=== PATIENT | female | born 1940 | race Caucasian/White ===

== ENCOUNTER 2022-09-26 03:14 | Inpatient (IN) ==
[2022-09-26] MEDS ORDERED: NALOXONE HCL 0.4 MG/ML VIAL IV ONE ×2 (03:15→03:30)
[2022-09-26] MEDS ORDERED: IOPAMIDOL 100 ML BOTTLE IV ONE (03:15)
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
[2022-09-26 03:56] LABS: POC Calcium, Ionized 1.12 (1.16-1.32); POC Potassium 3.8 (3.3-5.1)
[2022-09-26] MEDS ORDERED: 0.9 % SODIUM CHLORIDE 1,000 ML IV ONE (03:58)
[2022-09-26 04:52] LABS: Alcohol,Blood 0.072 gm/dL (<0.010)
[2022-09-26 04:53] LABS: Basophils # (Auto) 0.03 K/mcL (0.00-0.30); Basophils % (Auto) 0.4 % (0.0-2.0); Eosinophils # (Auto) 0.11 K/mcL (0.00-0.70); Eosinophils % (Auto) 1.5 % (0.0-7.0); Hematocrit 37.6 % (34.1-44.9); Lymphocytes # (Auto) 2.47 K/mcL (1.50-4.80); Lymphocytes % (Auto) 34.5 % (15.5-49.0); Mean Cell Volume 92.6 fL (80.0-100.0); Mean Corpuscular HGB Conc 31.9 g/dL (31.0-36.0); Mean Platelet Volume 8.7 fL (8.8-12.5); Monocytes # (Auto) 0.55 K/mcL (0.10-0.90); Monocytes % (Auto) 7.7 % (1.0-12.0); Neutrophils % (Auto) 55.5 % (38.0-78.0); Platelet Count 318 K/mcL (140-440); RBC 4.06 M/mcL (3.59-5.38); Red Cell Distribution Width 14.4 % (11.5-14.5); WBC 7.2 K/mcL (4.5-11.0)
[2022-09-26 04:56] LABS: proBNP 57.5 pg/mL (<450.0)
[2022-09-26 05:08] LABS: Appearance,Urine CLEAR (Clear); Bilirubin,Urine Negative (Negative); Color,Urine YELLOW; Culture Indicated,Urine No; Glucose,Urine (UA) Negative (Negative); Ketones,Urine Negative (Negative); Leukocyte Esterase,Urine Negative /uL (Negative); Mucus,Urine FEW /hpf; Nitrate,Urine Negative (Negative); Protein,Urine Negative (Negative); Specific Gravity,Urine 1.012 (1.000-1.035); Urine Blood Negative (Negative); Urine Hyaline Cast 11 /lph (0-2); Urine RBC < 1 /hpf (0-3); Urine Squamous Epithelial Cell 1 /hpf (0-4); Urine Transitional Epi Cells < 1 /hpf (0-2); Urine WBC 1 /hpf (0-4); Urobilinogen,Urine Negative
[2022-09-26 05:24] LABS: Amphetamine Screen,Urine None detected; Barbiturate Screen,Urine None detected; Benzodiazepines Screen,Urine None detected; Cannabinoid Screen,Urine Suspect Positive; Cocaine Screen,Urine None detected; Opiate Screen,Urine Suspect Positive; Oxycodone, Urine Screen None detected; Phencyclidine Screen,Urine None detected
--- NOTE | 2022-09-26 09:10 | XRay Report ---
CLINICAL INFORMATION: Dyspnea COMPARISON: 10/21/2020 TECHNIQUE: Portable FINDINGS: The heart size, mediastinum and pulmonary vessels are unremarkable. The lungs are clear. Moderate elevation right diaphragm seen as before. There are no effusions. The bones and soft tissues are within normal limits. [employer]OCIATE shunt catheter overlies the right neck chest and right upper quadrant no disruption IMPRESSION: Moderate stable elevation right diaphragm. No acute disease Interpreted and Authenticated by: Horace Barreto 09/26/22
--- NOTE | 2022-09-26 10:43 | Cat Scan Report ---
CLINICAL INFORMATION: Shortness of breath, cough and elevated d-dimer COMPARISON: Chest CT 12/26/2018. TECHNIQUE: 80ml of Isovue-370 were injected intravenously. Using SmartPrep to maximize pulmonary artery opacification, .625mm helical slices were obtained from the lung apices through the lung bases. Following reconstruction, 2.5 mm sagittal, coronal, and axial reformations were processed. The exam was reviewed at mediastinal, lung, and bone windows. The exam was performed using radiation dose optimization techniques including, but not limited to, automated exposure control, adjustment of the mA and/or kV according to patient size and use of iterative reconstruction technique. FINDINGS: Pulmonary parenchymal windows moderate patchy groundglass infiltrates in the shruti bronchovascular central right upper, lower and right middle lobes. A large eventration of the central tendon right diaphragm resulting in chronic compressive subsegmental atelectasis of the inferior right middle and lower lobes. There is also subsegmental atelectasis of the medial posterior basilar segments of the left lower lobe. There is minor scarring in the lingula. Pleural spaces are unremarkable-no effusions. Mediastinal windows show the heart is grossly normal in size and configuration. Moderate fibrofatty calcific plaque scattered throughout the coronary arteries. The pulmonary arteries are normal diameter and well-opacified without evidence of embolus. Thoracic aorta is also normal diameter and well-opacified. There is no adenopathy in the mediastinal, hilar or axillary regions. Esophagus shows moderate diffuse wall thickening with small hiatal hernia. This has progressed. The thyroid is unremarkable. Bones and soft tissues the chest wall are normal.-Shunt catheter is seen as heterogeneous fat over the right lower neck chest and right upper quadrant. 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 No evidence of pulmonary embolus. 2. Moderate patchy groundglass infiltrates and peribronchovascular right upper, middle and lower lobes. Consider aspiration or infection. 3. 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 4. Moderate wall thickening of the thoracic esophagus. This is most commonly due to to peptic disease and may predispose to aspiration. 5. 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 Patient is at risk for median arcuate ligament syndrome. Please correlate with chronic or intermittent postprandial pain and nausea Interpreted and Authenticated by: Horace Barreto 09/26/22
[2022-09-26] MEDS ORDERED: ACETAMINOPHEN 325 MG TABLET PO PRN (10:46)
[2022-09-26] MEDS ORDERED: IPRATROPIUM/ALBUTEROL 3 ML AMPUL.NEB NEB PRN (10:46)
[2022-09-26] MEDS ORDERED: MAGNESIUM SULFATE 2 GM/50 ML BAG IV PRN (10:46)
[2022-09-26] MEDS ORDERED: SENNOSIDES 1 TABLET PO PRN (10:46)
[2022-09-26] MEDS ORDERED: POLYETHYLENE GLYCOL 3350 17 GM PACKET PO PRN (10:46)
[2022-09-26] MEDS ORDERED: POTASSIUM CHLORIDE 20 MEQ TABLET PO PRN ×2 (10:46)
[2022-09-26] MEDS ORDERED: POTASSIUM CHLORIDE 40 MEQ in DEXTROSE 5% IN WATER 500 ML IV PRN (10:46)
[2022-09-26] MEDS ORDERED: ONDANSETRON 4 MG/2 ML VIAL IV PRN (10:46)
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
[2022-09-26] MEDS ORDERED: ZOLPIDEM 5 MG TABLET PO PRN (11:02)
[2022-09-26 11:12] LABS: ABG Methemoglobin 0 % (0.4-1.5); Total Hemoglobin 12.9 gm/Dl (12.0-15.0); VBG Base Excess -1 (-2-3); VBG HCO3 25.8 mmol/L (24.0-28.0); VBG Oxygen Saturation 87.5 % (40.0-70.0); VBG PCO2 51.4 mmHg (41.0-51.0); VBG PH 7.32 U (7.32-7.42); VBG PO2 60.2 mmHg (25.0-40.0); VBG Total CO2 27.4 mmol/L (25.0-29.0)
[2022-09-26] MEDS: ENOXAPARIN 40 MG/0.4 ML SYRINGE SQ SCH (11:32)
[2022-09-26 11:48] LABS: Phosphorous 3.1 mg/dL (2.5-4.5)
--- NOTE | 2022-09-26 13:24 | EKG ---
[facility] Test Date: 2022-09-26 Pat Name: Audrey Motta Department: ICU Room: 120B Gender: Female [employer]: : [id number] Requested By: Stephen Carrillo Order Number: [id number] Reading MD: Horace Ricketts M.D. Measurements Intervals [place] Rate: 84 P: 58 [place]: 201 QRS: 11 QRSD: 99 T: 33 QT: 372 QTc: 440 Interpretive Statements Sinus rhythm Electronically Signed On 09-26-2022 13:24:00 PST by Horace Ricketts M.D. /[id number]/[id number]
[2022-09-26] MEDS ORDERED: KETOROLAC 15 MG/ML VIAL IV PRN (14:07)
[2022-09-26] MEDS: 0.9 % SODIUM CHLORIDE 10 ML SYRINGE IV SCH ×2 (14:43→20:51)
[2022-09-26] MEDS: HYDROcodone/APAP 10/325MG TABLET PO PRN ×2 (14:43→20:55)
[2022-09-26] MEDS ORDERED: GABAPENTIN 300 MG CAPSULE PO SCH (21:00)
[2022-09-26] MEDS ORDERED: NORTRIPTYLINE 25 MG CAPSULE PO SCH (21:00)
[2022-09-26] MEDS ORDERED: LOSARTAN 25 MG TABLET PO SCH (21:00)
[2022-09-26] MEDS: DOCUSATE SODIUM 100 MG CAPSULE PO SCH (21:07)
[2022-09-27] MEDS: 0.9 % SODIUM CHLORIDE 10 ML SYRINGE IV SCH (05:55)
[2022-09-27] MEDS: ENOXAPARIN 40 MG/0.4 ML SYRINGE SQ SCH (07:04)
[2022-09-27] MEDS: HYDROcodone/APAP 10/325MG TABLET PO PRN (07:12)
[2022-09-27] MEDS: DOCUSATE SODIUM 100 MG CAPSULE PO SCH (07:39)
--- NOTE | 2022-09-27 08:11 | Internal Med Progress Note ---
SUBJECTIVE Subjective Patient information: Note initiated : 09/27/22 at 8:09 am Service Date, if different from initiated Date: [] Patient: Audrey Motta a 82 y/o F admitted on 09/26/22 for Shortness of breath- Respiratory Failure. Chief Complaint: [] Interval history: History of present illness: Ms. Motta is a 82 year old F Who is boyfriend found her to be obtunded and gurgling when she was breathing and appeared pale and appeared to have a hard time breathing. When EMS arrived her saturations were in the 70s and she was put on a nonrebreat her. Patient was extremely lethargic. Patient has a history of chronic back pain and anxiety she took. In the ED she was found to be mildly hypercapnic and acidotic to worsened on follow-up in the ED and she was put on BiPAP. Patient says she had a cold recently and has had some coughing and sinus congestion. She is also out of prolonged migraine and she says she took extra pain medications. She also took her home Ativan and did have a drink of alcohol. Blood pressure was stable. Laboratory was unremarkable for lactate was mildly elevated but then resolved on follow-up. Patient was put on BiPAP and transferred to the ICU. 06/27 Patient feeling much better. Alert and awake. Was on oxygen overnight and this morning and barely taken off just now. Constitutional Vitals: Vital Signs Temp Pulse Resp BP Pulse Ox O2 Del Method O2 Flow Rate 98.1 F 81 18 125/69 94 2 09/27/22 05:01 09/27/22 07:01 09/27/22 07:01 09/27/22 07:01 09/27/22 07:01 09/27/22 05:01 09/27/22 05:01 Period Temp Pulse Resp BP Sys/Rueda Pulse Ox O2 Del Method O2 Flow Rate Last 24 Hr 97.8 F-98.8 F 79-97 13-29 101-152/42-98 86-98 Nasal Cannula- Room Air 1-2 Intake and Output 09/26/22 09/27/22 09/27/22 19:59 03:59 11:59 Intake Total 960 360 200 Output Total 600 1450 675 Balance 360 1090 -296 Weight 79.787 kg Intake & Output: Intake & Output 09/26/22 09/27/2209/27/22 19:59 03:59 11:59 Intake Total 960 360 200 Output Total 600 1450 675 Balance 357 -3253 -902 Weight 79.787 kg Intake: Oral 960 360 200 Output: Void Amount 600 1450 675 Other: Meal Lunch Percent of Meal Consumed 100% Urine Appearance Clear Clear Urine Color Yellow Bright Yellow Urine Odor Strong Exam: General: Awake, No acute Distress Eyes/N/T: EOMI, Head/Neck: neck supple, CV: RRR, No murmurs, normal s1/s2 Pulm: Clear b/l, no wheezing/rhonchi/rales Abd: soft, nontender, +BS x4 Ext: no clubbing/cyanosis/edema Neuro: Alert and awake, no focal deficits. Skin: warm/dry OBJ DATA Labs CBC & Chem 7: 09/26/22 03:46 Labs: Abnormal Lab Results 09/26/22 09/26/22 09/26/22 10:30 07:06 06:09 MPV D-Dimer ABG Methemoglobin 0 L POC VBG pH 7.27 L VBG pCO2 51.4 H POC VBG pCO2 at Temp 52.2 H VBG pO2 60.2 H POC VBG pO2 67 H POC VBG HCO3 23.9 L POC VBG Total CO2 VBG O2 Saturation 87.5 H POC Venous O2 Sat 90.0 H POC VBG Base Excess -3.0 L VBG Lactic Acid < 0.2 L Carboxyhemoglobin 2.6 H POC Chloride POC WB Ioniz Calcium Hyaline Casts Urine Mucus Urine Opiates Screen U Marijuana (THC) Screen Ethyl Alcohol g/dL 09/26/22 09/26/22 09/26/22 04:20 04:20 03:56 MPV D-Dimer ABG Methemoglobin POC VBG pH VBG pCO2 POC VBG pCO2 at Temp VBG pO2 POC VBG pO2 POC VBG HCO3 POC VBG Total CO2 VBG O2 Saturation POC Venous O2 Sat POC VBG Base Excess VBG Lactic Acid Carboxyhemoglobin POC Chloride POC WB Ioniz Calcium Hyaline Casts 11 H Urine Mucus Few A Urine Opiates Screen Suspect positive A U Marijuana (THC) Screen Suspect positive A Ethyl Alcohol g/dL 0.072 H 09/26/22 09/26/22 09/26/22 03:53 03:50 03:46 MPV D-Dimer 0.63 H ABG Methemoglobin POC VBG pH 7.31 L VBG pCO2 POC VBG pCO2 at Temp 56.0 H VBG pO2 POC VBG pO2 POC VBG HCO3 28.2 H POC VBG Total CO2 30.0 H VBG O2 Saturation POC Venous O2 Sat 38.0 L POC VBG Base Excess VBG Lactic Acid 2.2 H Carboxyhemoglobin POC Chloride 95 L POC WB Ioniz Calcium 1.12 L Hyaline Casts Urine Mucus Urine Opiates Screen U Marijuana (THC) Screen Ethyl Alcohol g/dL 09/26/22 03:46 MPV 8.7 L D-Dimer ABG Methemoglobin POC VBG pH VBG pCO2 POC VBG pCO2 at Temp VBG pO2 POC VBG pO2 POC VBG HCO3 POC VBG Total CO2 VBG O2 Saturation POC Venous O2 Sat POC VBG Base Excess VBG Lactic Acid Carboxyhemoglobin POC Chloride POC WB Ioniz Calcium Hyaline Casts Urine Mucus Urine Opiates Screen U Marijuana (THC) Screen Ethyl Alcohol g/dL Meds: Medications Acetaminophen (Acetaminophen 325 Mg Tablet) 650 mg PO Q6HP PRN; Protocol PRN Reason: Per Pain Protocol/Fever > 101 Hydrocodone Bitart/Acetaminophen (Hydrocodone/Apap 10/325mg Tablet) 1 tab PO Q6H PRN; Protocol PRN Reason: pain Last Admin: 09/27/22 07:12 Dose: 1 tab Albuterol/Ipratropium (Ipratropium/Albuterol 3 Ml Ampul.Neb) 3 ml NEB Q4HP PRN PRN Reason: Shortness Of Breath Docusate Sodium (Docusate Sodium 100 Mg Capsule) 100 mg PO BID [facility] Last Admin: 09/27/22 07:39 Dose: Not Given Enoxaparin Sodium (Enoxaparin 40 Mg/0.4 Ml Syringe) 40 mg SQ DAILY [facility] Last Admin: 09/27/22 07:04 Dose: 40 mg Gabapentin (Gabapentin 300 Mg Capsule) 900 mg PO QHS [facility] Last Admin: 09/26/22 20:49 Dose: 900 mg Potassium Chloride 40 meq/ (Dextrose) 520 mls @ 130 mls/hr IV UD PRN PRN Reason: Potassium < 3 Magnesium Sulfate (Magnesium Sulfate) 2 gm in 50 mls @ 50 mls/hr IV UD PRN PRN Reason: Magnesium </= 1.6 Losartan Potassium (Losartan 25 Mg Tablet) 25 mg PO QHS [facility] Last Admin: 09/26/22 20:49 Dose: 25 mg Nortriptyline HCl (Nortriptyline 25 Mg Capsule) 100 mg PO QHS [facility] Last Admin: 09/26/22 20:49 Dose: 100 mg Omeprazole (Omeprazole 20 Mg Capsule) 20 mg PO QDAY [facility] Last Admin: 09/27/22 07:04 Dose: 20 mg Ondansetron HCl (Ondansetron 4 Mg/2 Ml Vial) 4 mg IV Q4HP PRN PRN Reason: Nausea And Vomiting Polyethylene Glycol (Polyethylene Glycol 3350 17 Gm Packet) 17 gm PO DAILYP PRN PRN Reason: Constipation Potassium Chloride (Potassium Chloride 20 Meq Tablet) 40 meq PO UD PRN PRN Reason: Potssium is 3-3.5 Potassium Chloride (Potassium Chloride 20 Meq Tablet) 40 meq PO UD PRN PRN Reason: Potassium < 3 Senna (Sennosides 1 Tablet) 2 tab PO DAILYP PRN PRN Reason: Constipation Sodium Chloride (0.9 % Sodium Chloride 10 Ml Syringe) 10 ml IV Q8 [facility] Last Admin: 09/27/22 05:55 Dose: 10 ml Zolpidem Tartrate (Zolpidem 5 Mg Tablet) 5 mg PO QHS PRN PRN Reason: insomnia ABG Interpretation ABG results: 09/26/22 10:30 ABG Methemoglobin 0 L VBG pH 7.32 VBG pCO2 51.4 H VBG pO2 60.2 H VBG HCO3 25.8 VBG Total CO2 27.4 VBG O2 Saturation 87.5 H VBG Base Excess -1 A/P Narrative A/P Narrative: A: *Unintentional overdose: via Benzodiazepines/narcotics/alcohol *Acute hypoxic hypercapnic respiratory failure: -placed ond BiPAP initially, now on 1-2L NC but just taken off and trial on room air now *Aspiration: 2/2 above *Lactic acidosis: Resolved *Chronic LBP/neuropathy: *Depression/anxiety/PTSD: *HTN: P: -O2 wean, -caution with sedating meds -Monitor urine output and vitals closely -IS/Acapella -Continue home ARB -PT/OT -ppx: Lovenox /home PPI Time Spent With Patient Time: Total time spent is greater than 50% in coordination of care (as documented) at patient's floor/unit and/or counseling patient: Total time spent with greater than 50% in coordination of care (as documented) at patient's floor/unit and/or counseling patient:: 25 - 35 minutes QUALITY VTE Deep Vein Thrombosis/Pulmonary Embolism Present on Admission: No
[2022-09-27] MEDS ORDERED: OMEPRAZOLE 20 MG CAPSULE PO SCH (09:00)
--- NOTE | 2022-09-27 10:45 | Discharge Summary ---
Discharge Provider Provider IMPORTANT FOLLOW-UP INFORMATION FOR PCP: Patient information: Note initiated : 09/27/22 at 10:43 am Service Date, if different from initiated Date: [] Patient: Audrey Motta a 82 y/o F admitted on 09/26/22 for Shortness of breath- Respiratory Failure. Chief Complaint: [] Date of admission: 09/26/22 08:21 Discharge date: 09/27/22 Primary care physician: Horace López DO Consults: 09/26/22 Consult to Physician [CONS] Stat Comment: Consulting Provider: Stephen Carrillo Reason For Exam: Physician to Consult COURSE Hospital Course Hospital course: History of present illness: Ms. Motta is a 82 year old F Who is boyfriend found her to be obtunded and gurgling when she was breathing and appeared pale and appeared to have a hard time breathing. When EMS arrived her saturations were in the 70s and she was put on a nonrebreather. Patient was extremely lethargic. Patient has a history of chronic back pain and anxiety she took. In the ED she was found to be mildly hypercapnic and acidotic to worsened on follow-up in the ED and she was put on BiPAP. Patient says she had a cold recently and has had some coughing and sinus congestion. She is also out of prolonged migraine and she says she took extra pain medications. She also took her home Ativan and did have a drink of alcohol. Blood pressure was stable. Laboratory was unremarkable for lactate was mildly elevated but then resolved on follow-up. Patient was put on BiPAP and transferred to the ICU. 06/27 Patient feeling much better. Alert and awake. Was on oxygen overnight and this morning and barely taken off just now. *Patient now on room air tolerating it and responded more quickly than expected. Patient will be stable for discharge. A: *Unintentional overdose: via Benzodiazepines/narcotics/alcohol *Acute hypoxic hypercapnic respiratory failure: -placed ond BiPAP initially, now on 1-2L NC but just taken off and trial on room air now *Aspiration: 2/2 above *Lactic acidosis: Resolved *Chronic LBP/neuropathy: *Depression/anxiety/PTSD: *HTN: Discharge diagnosis: Unintentional overdose hypercapnic and hypoxic respiratory failure Secondary discharge diagnosis: Aspiration lactic acidosis chronic low back pain depression anxiety hypertension Time Spent with Patient Time attestation: Total time spent providing and/or coordinating discharge services: Time spent: Greater than 30 minutes EXAM Constitutional Vitals: Temp Pulse Resp BP Pulse Ox O2 Del Method O2 Flow Rate 97.5 F 84 18 131/58 93 2 09/27/22 08:00 09/27/22 10:01 09/27/22 10:01 09/27/22 10:01 09/27/22 10:01 09/27/22 08:00 09/27/22 05:01 Discharge Data Data Completed and Pending Labs on day of discharge: Labs from last 24 hours 09/26/22 09/26/22 10:30 10:30 ABG Methemoglobin 0 L VBG pH 7.32 VBG pCO2 51.4 H VBG pO2 60.2 H VBG HCO3 25.8 VBG Total CO2 27.4 VBG O2 Saturation 87.5 H VBG Base Excess -1 Carboxyhemoglobin 2.6 H Total Hemoglobin 12.9 Phosphorus 3.1 Magnesium 1.7 Preliminary micro results at discharge 09/26/22 04:08 Blood Culture - Preliminary Blood 09/26/22 04:00 Blood Culture - Preliminary Blood Discharge Plan Patient/Caregiver Discharge Instructions Activity: increase activity as tolerated Diet: Regular Diet Prescriptions: Continued omeprazole 20 mg capsule,delayed release(DR/EC) 20 mg PO QDAY Qty: 90 3RF tretinoin 0.05 % cream 1 applic topical QHS Qty: 20 1RF Rx Instructions: Apply to affected area topically once daily at bedtime. lorazepam 1 mg tablet 1 mg PO TID PRN (Reason: anxiety) Qty: 84 2RF estradiol 0.5 mg tablet 0.5 mg PO QDAY Qty: 90 3RF zolpidem 10 mg tablet 5 mg PO QHS PRN (Reason: insomnia) Qty: 15 2RF hydrocodone-acetaminophen 10-325 mg tablet 1 tab PO Q6H PRN (Reason: pain) Qty: 112 0RF gabapentin 300 mg capsule 900 mg PO QHS Botox 100 unit recon soln 5 unit IM .Q 3 months Label Comments: Unknown dose. nortriptyline 50 mg capsule 100 mg PO QHS 30 Days Qty: 60 ondansetron HCl 4 mg tablet 4 mg PO Q6H losartan 25 mg tablet 25 mg PO QHS Qty: 90 3RF Follow Up Plan Follow up with: Horace López DO [Primary Care Provider] - Patient Disposition: Home, Self-Care Prognosis: Undetermined Overall status at discharge: patient is progressing back to baseline Discharge Orders: Discharge Order (Routine); Ordered 09/27/22 Ordered By: Stephen Carrillo [facility] VTE Deep Vein Thrombosis/Pulmonary Embolism Present on Admission: No
[2022-10-04 09:33] LABS: Cannabinoid Confirmation Positive; Opiate Confirmation Positive
== END 2022-09-27 12:50 | disposition home or self-care (01) | DRG 917 ==
LOC: ED 03:14 → ICU 08:21
PROVIDERS: ADMIT Internal Medicine; ATTEND Internal Medicine

== ENCOUNTER 2023-05-07 10:09 | Observation (INO) ==
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
[2023-05-07] MEDS ORDERED: IPRATROPIUM/ALBUTEROL 3 ML AMPUL.NEB NEB ONE (10:44)
[2023-05-07] MEDS ORDERED: methylPREDNISolone SOD SUCC 125 MG/2 ML VIAL IV ONE (10:44)
[2023-05-07] MEDS ORDERED: 0.9 % SODIUM CHLORIDE 1,000 ML IV ONE (10:44)
[2023-05-07 11:15] LABS: POC Calcium, Ionized 1.15 (1.16-1.32); POC Creatinine 0.8 (0.6-1.2); POC Potassium 4.3 (3.3-5.1)
[2023-05-07 11:46] LABS: Basophils # (Auto) 0.03 K/mcL (0.00-0.30); Basophils % (Auto) 0.2 % (0.0-2.0); Eosinophils # (Auto) 0.08 K/mcL (0.00-0.70); Eosinophils % (Auto) 0.6 % (0.0-7.0); Hematocrit 35.8 % (34.1-44.9); Hemoglobin 11.3 g/dL (11.2-15.7); Lymphocytes # (Auto) 1.59 K/mcL (1.50-4.80); Lymphocytes % (Auto) 11.5 % (15.5-49.0); Mean Cell Volume 91.8 fL (80.0-100.0); Mean Corpuscular HGB Conc 31.6 g/dL (31.0-36.0); Mean Platelet Volume 8.5 fL (8.8-12.5); Monocytes # (Auto) 0.91 K/mcL (0.10-0.90); Monocytes % (Auto) 6.6 % (1.0-12.0); Neutrophils % (Auto) 80.6 % (38.0-78.0); Platelet Count 324 K/mcL (140-440); Red Cell Distribution Width 14.8 % (11.5-14.5); WBC 13.8 K/mcL (4.5-11.0)
[2023-05-07] MEDS ORDERED: AZITHROMYCIN 500 MG in DEXTROSE 5% IN WATER 250 ML IV ONE (11:52)
[2023-05-07] MEDS ORDERED: cefTRIAXone 1 GM VIAL IV ONE (11:52)
[2023-05-07 12:06] LABS: ALT/SGPT 9 U/L (<40); AST/SGOT 13 U/L (<32); Albumin 3.5 gm/dL (3.2-5.2); Alkaline Phosphatase 49 U/L (39-117); Bilirubin,Direct < 0.2 mg/dL (0-0.3); Bilirubin,Total < 0.2 mg/dL (0.1-1.0); Globulin 2.9 gm/dL (2.2-3.7); proBNP 78.2 pg/mL (<450.0)
--- NOTE | 2023-05-07 15:09 | XRay Report ---
HISTORY: Cough and congestion FINDINGS: There is a moderate-sized alveolar infiltrate in the lower half of the left lung. The greatest consolidation is in the lingula. No pleural effusion. Right diaphragm is moderately elevated. This is a chronic stable finding. The right lung is clear. There is a shunt catheter extending across the neck and right chest into the abdomen. The heart is normal in size and contour. Comparison with the prior chest x-ray done on 09/26/22 shows the infiltrate is new. IMPRESSION: Moderate pneumonia in the left lower lobe and lingula Interpreted and Authenticated by: Fadi Ricketts 05/07/23
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
[2023-05-07] MEDS ORDERED: ONDANSETRON 4 MG/2 ML VIAL IV PRN (16:51)
[2023-05-07] MEDS ORDERED: ACETAMINOPHEN 325 MG TABLET PO PRN (16:51)
[2023-05-07] MEDS: SENNOSIDES 1 TABLET PO SCH (20:58)
[2023-05-07] MEDS: HYDROcodone/APAP 10/325MG TABLET PO PRN (20:58)
[2023-05-07] MEDS: DOCUSATE SODIUM 100 MG CAPSULE PO SCH (20:58)
[2023-05-07] MEDS: 0.9 % SODIUM CHLORIDE 10 ML SYRINGE IV SCH (20:59)
[2023-05-07] MEDS ORDERED: GABAPENTIN 100 MG CAPSULE PO SCH (21:00)
[2023-05-07] MEDS ORDERED: NORTRIPTYLINE 10 MG CAPSULE PO SCH (21:00)
[2023-05-07] MEDS ORDERED: ZOLPIDEM 5 MG TABLET PO PRN (21:12)
[2023-05-07] MEDS ORDERED: GABAPENTIN 400 MG CAPSULE PO SCH (21:13)
[2023-05-07] MEDS ORDERED: GABAPENTIN 100 MG CAPSULE PO ONE (21:16)
[2023-05-07] MEDS ORDERED: ZOLPIDEM 5 MG TABLET ONE (22:43)
[2023-05-07] MEDS ORDERED: GABAPENTIN 300 MG CAPSULE ONE (22:43)
[2023-05-08] MEDS: HYDROcodone/APAP 10/325MG TABLET PO PRN ×4 (02:44→21:08)
[2023-05-08] MEDS: 0.9 % SODIUM CHLORIDE 10 ML SYRINGE IV SCH ×3 (04:22→21:10)
[2023-05-08 06:18] LABS: Basophils # (Auto) 0.02 K/mcL (0.00-0.30); Basophils % (Auto) 0.1 % (0.0-2.0); Eosinophils # (Auto) 0 K/mcL (0.00-0.70); Eosinophils % (Auto) 0 % (0.0-7.0); Hematocrit 34.5 % (34.1-44.9); Hemoglobin 10.9 g/dL (11.2-15.7); Lymphocytes # (Auto) 1.06 K/mcL (1.50-4.80); Lymphocytes % (Auto) 6.6 % (15.5-49.0); Mean Corpuscular HGB Conc 31.6 g/dL (31.0-36.0); Monocytes # (Auto) 0.51 K/mcL (0.10-0.90); Monocytes % (Auto) 3.2 % (1.0-12.0); Neutrophils % (Auto) 89.3 % (38.0-78.0); Platelet Count 332 K/mcL (140-440); RBC 3.79 M/mcL (3.59-5.38); Red Cell Distribution Width 14.7 % (11.5-14.5)
[2023-05-08] MEDS: DOCUSATE SODIUM 100 MG CAPSULE PO SCH ×2 (08:26→21:09)
[2023-05-08] MEDS: AZITHROMYCIN 500 MG in DEXTROSE 5% IN WATER 250 ML IV SCH (08:47)
[2023-05-08] MEDS: cefTRIAXone 1 GM VIAL IV SCH (08:47)
[2023-05-08] MEDS ORDERED: LORazepam 1 MG TABLET PO PRN (11:45)
--- NOTE | 2023-05-08 11:49 | Internal Med Progress Note ---
SUBJECTIVE Subjective Patient information: Note initiated : 05/08/23 at 11:46 am Service Date, if different from initiated Date: [] Patient: Audrey Motta a 82 y/o F admitted on 05/07/23. Chief Complaint: [] Interval history: Ms. Motta is a 82 year old female with multiple comorbidities including normal pressure hydrocephalus status post GRAPHIC TECHNICIAN shunt, degenerative disc disease complicated by chronic back pain, prior lumbar spine fusion, chronic opioid use for pain, chronic benzodiazepine use, insomnia on zolpidem nightly, right hemidiaphragm paralysis who presented to the emergency department for cough, body aches, and was found to have a community-acquired pneumonia with chest showing infiltrates in the left lung odonnell. Patient also had a new oxygen requirement with ambulation. Hospital medicine was asked to admit the patient for further management. Upon examination, the patient does appear somewhat drowsy but easily awakes. We reviewed the patient's use of occasions that would place her at risk of respiratory depression including opioid, benzodiazepines, hypnotics for insomnia. The patient confirms that she is taking large amounts of hydrocodone for chronic back pain she is also taking lorazepam as well as zolpidem. In addition to this, the patient also takes gabapentin at bedtime. In the ED, the patient had negative SARS Cov 2, influenza A, and influenza B rapid antigen testing. She does have leukocytosis, no fevers in the ED. Procalcitonin level was normal which can happen with bacterial pneumonia however procalcitonin level is usually at least somewhat elevated with a bacterial pneumonia. It is possible that the patient has a aspiration pneumonitis instead of bacterial pneumonia. Risk factors for aspiration include high-dose opioids, chronic benzodiazepine use and zolpidem which the patient takes nightly for insomnia. Review of the patient's past medical record indicates that in 2021 she was found obtunded and was admitted for acute hypoxic respiratory failure that was attributed to an unintentional overdose of opioids, benzodiazepines as well as alcohol. I suspect this current presentation to be a milder form respiratory depression secondary to the the combined effect of opioids, benzodiazepines, hypnotics which probably led to an aspiration event while the patient was sleeping resulting in aspiration pneumonitis and possibly aspiration pneumonia. 05/08 Vital stable overnight, continues on room air. White blood cell count increased likely secondary to high-dose IV Solu-Medrol received in the ED yesterday. Patient feels better overall, continue ceftriaxone and azithromycin. Resumed home Ativan as needed, [place], zolpidem and at bedtime as needed for insomnia. Discussed risk of respiratory depression from these medications in detail. Physical exam Head: Atraumatic, normal inspection. Eyes: no scleral icterus. Neck: full ROM Respiratory: On room air, no signs of respiratory distress Cardiovascular: Regular tachycardia, S1, S2. GI/Abdominal: soft, nontender, no guarding. Extremities: full range of motion, nontender. Neurological: CN II-XII intact, intact motor, intact sensation. Psychiatric: Normal mood Skin: warm, normal color Constitutional Vitals: Vital Signs Temp Pulse Resp BP Pulse Ox O2 Del Method O2 Flow Rate 98.2 F 97 H 20 157/81 94 Room Air 2 05/08/23 11:42 05/08/23 11:42 05/08/23 11:42 05/08/23 11:42 05/08/23 11:42 05/08/23 11:42 05/07/23 20:00 Period Temp Pulse Resp BP Sys/Rueda Pulse Ox O2 Del Method O2 Flow Rate Last 24 Hr 97.5 F-98.2 F 80-109 16-24 127-162/65-116 87-98 Nasal Cannula- Room Air 2-2 Intake and Output 05/07/23 05/08/23 05/08/23 19:59 03:59 11:59 Intake Total 1250 500 Output Total 1 800 250 Balance 1249 -800 250 Weight 80.031 kg Intake & Output: Intake & Output 05/07/23 05/08/23 05/08/23 19:59 03:59 11:59 Intake Total 1250 500 Output Total 1 800 250 Balance 1249 -800 250 Weight 80.031 kg Intake: IV 1250 250 Sodium Chloride 0.9% 1,000 ml @ 1000 Wide Open IV BOLUS ONE Rx#: [id number] Zithromax 500 mg In Dextrose 5% 250 250 in Water 250 ml @ 250 mls/hr IV Q24H [facility] Rx#:[id number] Oral 250 Output: Urine Catheter Amount 250 Void Amount 800 # of times incontinent of urine 1 Other: Urine Appearance Clear Urine Color Yellow Pale # Voids 1 OBJ DATA Labs 05/08/23 05:38 Labs: Abnormal Lab Results 05/08/23 05/07/23 05/07/23 05:38 11:10 11:05 WBC 16.0 H Hgb 10.9 L RDW 14.7 H MPV Immature Gran % (Auto) 0.8 H Neut % (Auto) 89.3 H Lymph % (Auto) 6.6 L Lymph # (Auto) 1.06 L [place] # (Auto) Immature Gran # 0.13 H Absolute Neutrophils 14.26 H POC VBG pO2 18 L POC Venous O2 Sat 23.0 L POC WB Ioniz Calcium 1.15 L 05/07/23 11:02 WBC 13.8 H Hgb RDW 14.8 H MPV 8.5 L Immature Gran % (Auto) Neut % (Auto) 80.6 H Lymph % (Auto) 11.5 L Lymph # (Auto) [place] # (Auto) 0.91 H Immature Gran # 0.07 H Absolute Neutrophils 11.09 H POC VBG pO2 POC Venous O2 Sat POC WB Ioniz Calcium Meds: Medications Acetaminophen (Acetaminophen 325 Mg Tablet) 650 mg PO Q6HP PRN; Protocol PRN Reason: Per Pain Protocol/Fever > 101 Hydrocodone Bitart/Acetaminophen (Hydrocodone/Apap 10/325mg Tablet) 1 tab PO Q6HP PRN; Protocol PRN Reason: Per Pain Protocol Last Admin: 05/08/23 08:46 Dose: 1 tab Ceftriaxone Sodium (Ceftriaxone 1 Gm Vial) 1 gm IV Q24H [facility]; Protocol Last Admin: 05/08/23 08:47 Dose: 1 gm Docusate Sodium (Docusate Sodium 100 Mg Capsule) 100 mg PO BID [facility] Last Admin: 05/08/23 08:26 Dose: Not Given Gabapentin (Gabapentin 100 Mg Capsule) 900 mg PO [facility] Last Admin: 05/07/23 22:45 Dose: 900 mg Azithromycin 500 mg/ Dextrose 250 mls @ 250 mls/hr IV Q24H [facility]; Protocol Stop: 05/09/23 10:59 Last Infusion: 05/08/23 10:05 Dose: Infused Lorazepam (Lorazepam 1 Mg Tablet) 1 mg PO TIDP PRN PRN Reason: ANXIETY/SEDATION Nortriptyline HCl (Nortriptyline 25 Mg Capsule) 100 mg PO [facility] Ondansetron HCl (Ondansetron 4 Mg/2 Ml Vial) 4 mg IV Q6HP PRN PRN Reason: Nausea And Vomiting Senna (Sennosides 1 Tablet) 2 tab PO [facility] Last Admin: 05/07/23 20:58 Dose: 2 tab Sodium Chloride (0.9 % Sodium Chloride 10 Ml Syringe) 10 ml IV Q8 [facility] Last Admin: 05/08/23 04:22 Dose: 10 ml Zolpidem Tartrate (Zolpidem 5 Mg Tablet) 5 mg PO [facility] PRN PRN Reason: Insomnia A/P Narrative A/P Narrative: Assessment: 82 year old female with multiple comorbidities including normal pressure hydrocephalus status post GRAPHIC TECHNICIAN shunt, degenerative disc disease complicated by chronic back pain, prior lumbar spine fusion, chronic opioid use for pain, chronic benzodiazepine use, insomnia on bedtime zolpidem admitted for a new oxygen requirement occurring in the setting of probable aspiration pneumonitis, possible community-acquired aspiration pneumonia probably secondary to respiratory depression from combined effect of opioids, benzodiazepines and zolpidem. #Aspiration pneumonitis versus community-acquired aspiration pneumonia #Resolved exertional hypoxia secondary to pneumonitis/pneumonia #Chronic lower back pain on chronic opioid #Anxiety disorder on chronic benzodiazepine #Insomnia on zolpidem #GERD #Normal pressure hydrocephalus status post GRAPHIC TECHNICIAN shunt #Opioid dependency #Polypharmacy Plan: -Ceftriaxone and azithromycin. -Oxygen supplementation as needed. -Monitor WBC. -Resume home amlodipine, estradiol, gabapentin, hydrocodone, lorazepam, nortriptyline, omeprazole, zolpidem. -Discussed risk of multiple sedating medications including opioid, benzodiazepine, hypnotics for sleep in detail. -Disposition: Observation MedSurg. Time Spent With Patient Time: Total time spent is greater than 50% in coordination of care (as documented) at patient's floor/unit and/or counseling patient: QUALITY Stroke Symptom Onset Unknown: No VTE Deep Vein Thrombosis/Pulmonary Embolism Present on Admission: No
[2023-05-08] MEDS ORDERED: ZOLPIDEM 5 MG TABLET PO PRN (11:53)
[2023-05-08] MEDS ORDERED: NORTRIPTYLINE 25 MG CAPSULE PO SCH ×2 (21:00)
[2023-05-08] MEDS ORDERED: GABAPENTIN 300 MG CAPSULE PO SCH (21:00)
[2023-05-08] MEDS ORDERED: GABAPENTIN 400 MG CAPSULE PO SCH (21:00)
[2023-05-08] MEDS: SENNOSIDES 1 TABLET PO SCH (21:09)
[2023-05-09] MEDS: 0.9 % SODIUM CHLORIDE 10 ML SYRINGE IV SCH (05:04)
[2023-05-09] MEDS: HYDROcodone/APAP 10/325MG TABLET PO PRN (05:04)
[2023-05-09 07:00] LABS: Basophils # (Auto) 0.03 K/mcL (0.00-0.30); Basophils % (Auto) 0.2 % (0.0-2.0); Eosinophils # (Auto) 0.09 K/mcL (0.00-0.70); Eosinophils % (Auto) 0.7 % (0.0-7.0); Hematocrit 33.8 % (34.1-44.9); Hemoglobin 10.5 g/dL (11.2-15.7); Lymphocytes # (Auto) 3.13 K/mcL (1.50-4.80); Lymphocytes % (Auto) 24.9 % (15.5-49.0); Mean Cell Volume 91.8 fL (80.0-100.0); Mean Corpuscular HGB Conc 31.1 g/dL (31.0-36.0); Monocytes # (Auto) 1.12 K/mcL (0.10-0.90); Monocytes % (Auto) 8.9 % (1.0-12.0); Neutrophils % (Auto) 64.8 % (38.0-78.0); Platelet Count 333 K/mcL (140-440); RBC 3.68 M/mcL (3.59-5.38); Red Cell Distribution Width 15.2 % (11.5-14.5); WBC 12.6 K/mcL (4.5-11.0)
[2023-05-09] MEDS ORDERED: OMEPRAZOLE 20 MG CAPSULE PO SCH (07:30)
--- NOTE | 2023-05-09 07:38 | Discharge Summary ---
Discharge Provider Provider IMPORTANT FOLLOW-UP INFORMATION FOR PCP: Patient information: Note initiated : 05/09/23 at 7:35 am Service Date, if different from initiated Date: [] Patient: Audrey Motta 82 y/o F admitted on 05/07/23. Chief Complaint: [] Date of admission: 05/07/23 16:38 Discharge date: 05/09/23 Primary care physician: Horace López DO Consults: 05/07/23 14:31 Consult to Physician [CONS] Stat Comment: Consulting Provider: Mike Lozada Reason For Exam: Physician to Consult COURSE Hospital Course Hospital course: Ms. Motta is a 82 year old female with multiple comorbidities including normal pressure hydrocephalus status post [employer] shunt, degenerative disc disease complicated by chronic back pain, prior lumbar spine fusion, chronic opioid use for pain, chronic benzodiazepine use, insomnia on zolpidem nightly, right hemidiaphragm paralysis who presented to the emergency department for cough, body aches, and was found to have a community-acquired pneumonia with chest showing infiltrates in the left lung odonnell. Patient also had a new oxygen requirement with ambulation. Hospital medicine was asked to admit the patient for further management. Upon examination, the patient does appear somewhat drowsy but easily awakes. We reviewed the patient's use of occasions that would place her at risk of respiratory depression including opioid, benzodiazepines, hypnotics for insomnia. The patient confirms that she is taking large amounts of hydrocodone for chronic back pain she is also taking lorazepam as well as zolpidem. In addition to this, the patient also takes gabapentin at bedtime. In the ED, the patient had negative SARS Cov 2, influenza A, and influenza B rapid antigen testing. She does have leukocytosis, no fevers in the ED. Proca lcitonin level was normal which can happen with bacterial pneumonia however procalcitonin level is usually at least somewhat elevated with a bacterial pneumonia. It is possible that the patient has a aspiration pneumonitis instead of bacterial pneumonia. Risk factors for aspiration include high-dose opioids, chronic benzodiazepine use and zolpidem which the patient takes nightly for insomnia. Review of the patient's past medical record indicates that in 2021 she was found obtunded and was admitted for acute hypoxic respiratory failure that was attributed to an unintentional overdose of opioids, benzodiazepines as well as alcohol. I suspect this current presentation to be a milder form respiratory depression secondary to the the combined effect of opioids, benzodiazepines, hypnotics which probably led to an aspiration event while the patient was sleeping resulting in aspiration pneumonitis and possibly aspiration pneumonia. 05/08 Vital stable overnight, continues on room air. White blood cell count increased likely secondary to high-dose IV Solu-Medrol received in the ED yesterday. Patient feels better overall, continue ceftriaxone and azithromycin. Resumed home Ativan as needed, Mcgill, zolpidem and at bedtime as needed for insomnia. Discussed risk of respiratory depression from these medications in detail. 05/09 No significant events overnight, on room air. The patient feels like she is ready to discharge home. We discussed the risks of her multiple sedating medications, especially the risk of combining them. Patient will discharge to home on cefuroxime to complete 5 days of antibiotics for possible community- acquired pneumonia. In hindsight I feel that this pneumonia is likely secondary to an aspiration event with risk factor for aspiration being multiple m edications that can cause respiratory depression and increased risk of aspiration in a patient who has GERD and ongoing issues with acid reflux symptoms. Discussed mitigation strategies for aspiration including raising the head of the bed, dietary strategies and also avoiding alcohol at night especially avoiding combining sedating medications at nighttime. Follow-up with primary care provider in clinic. Physical exam Head: Atraumatic, normal inspection. Eyes: no scleral icterus. Neck: full ROM Respiratory: On room air, no signs of respiratory distress Cardiovascular: Regular tachycardia, S1, S2. GI/Abdominal: soft, nontender, no guarding. Extremities: full range of motion, nontender. Neurological: CN II-XII intact, intact motor, intact sensation. Psychiatric: Normal mood Skin: warm, normal color Discharge diagnosis: Aspiration pneumonitis versus community-acquired pneumonia Time Spent with Patient Time attestation: Total time spent providing and/or coordinating discharge services: Time spent: Less than 30 minutes EXAM Constitutional Vitals: Temp Pulse Resp BP Pulse Ox O2 Del Method O2 Flow Rate 97.3 F 89 16 155/86 92 Room Air 2 05/09/23 03:05/09/23 03:05/09/23 03:05/09/23 03:05/09/23 03:05/09/23 03:05/07/23 20:00 Discharge Data Data Completed and Pending Labs on day of discharge: Labs from last 24 hours 05/09/23 05:35 WBC 12.6 H RBC 3.68 Hgb 10.5 L Hct 33.8 L MCV 91.8 MCH 28.5 MCHC 31.1 RDW 15.2 H Plt Count 333 MPV 9.0 Immature Gran % (Auto) 0.5 Neut % (Auto) 64.8 Lymph % (Auto) 24.9 [place] % (Auto) 8.9 Eos % (Auto) 0.7 Baso % (Auto) 0.2 Lymph # (Auto) 3.13 [place] # (Auto) 1.12 H Eos # (Auto) 0.09 Baso # (Auto) 0.03 Immature Gran # 0.06 H Absolute Neutrophils 8.15 H Discharge Plan Patient/Caregiver Discharge Instructions Activity: increase activity as tolerated Instructions: Community Acquired Pneumonia (GEN), Hypoxia (GEN) Activity Restrictions/Additional Instructions: Please avoid taking lorazepam with ambien. Avoid alcohol with bedtime medications. Prescriptions: New cefuroxime axetil 500 mg tablet 500 mg PO BID 2 Days Qty: 4 0RF Rx Instructions: Start taking on 05/10/23 and complete two more days of antibiotic for a total of five days including antibiotics received during the hospitalization. Continued estradiol 0.5 mg tablet 0.5 mg PO QDAY Qty: 90 3RF omeprazole 20 mg capsule,delayed release(DR/EC) 20 mg PO QDAY Qty: 90 3RF zolpidem 10 mg tablet 5 mg PO QHS PRN (Reason: insomnia) Qty: 15 2RF lorazepam 1 mg tablet 1 mg PO TID PRN (Reason: anxiety) Qty: 84 2RF hydrocodone-acetaminophen 10-325 mg tablet 1 tab PO Q6H PRN (Reason: pain) Qty: 112 0RF gabapentin 300 mg capsule 900 mg PO QHS Botox 100 unit recon soln 5 unit IM .Q 3 months Patient Comments: Unknown dose. nortriptyline 50 mg capsule 100 mg PO QHS 30 Days Qty: 60 ondansetron HCl 4 mg tablet 4 mg PO Q6 PRN (Reason: Nausea) amlodipine 2.5 mg tablet 2.5 mg PO QDAY Qty: 90 3RF No Action tretinoin 0.05 % cream 1 applic topical QHS Qty: 20 1RF Rx Instructions: Apply to affected area topically once daily at bedtime. naloxone 4 mg/actuation spray,non-aerosol 1 spray intranasal Q2-3M PRN (Reason: opioid overdose) Qty: 2 0RF Rx Instructions: spray 1 dose into ONE nostril; alternate nostrils w each dose until help arrives Follow Up Plan Follow up with: Horace López DO [Primary Care Provider] - (Your primary care physician will contact you to schedule an appointment.) Patient Disposition: Home, Self-Care Overall status at discharge: patient is progressing back to baseline Discharge Orders: Discharge Order (Routine); Ordered 05/09/23 Ordered By: Mike NEFF VTE Deep Vein Thrombosis/Pulmonary Embolism Present on Admission: No
[2023-05-09] MEDS: cefTRIAXone 1 GM VIAL IV SCH (08:47)
[2023-05-09] MEDS: DOCUSATE SODIUM 100 MG CAPSULE PO SCH (08:47)
[2023-05-09] MEDS ORDERED: ESTRADIOL 1 MG TABLET PO SCH (09:00)
[2023-05-09] MEDS ORDERED: amLODIPine 5 MG TABLET PO SCH (09:00)
[2023-05-09] MEDS: AZITHROMYCIN 500 MG in DEXTROSE 5% IN WATER 250 ML IV SCH (10:18)
[2023-05-09] MEDS ORDERED: AZITHROMYCIN 250 MG TABLET PO ONE (10:18)
== END 2023-05-09 10:50 | disposition home or self-care (01) ==
LOC: ED 10:09 → ICU 10:09
PROVIDERS: ADMIT Internal Medicine; ATTEND Internal Medicine

== ENCOUNTER 2023-07-18 03:20 | Inpatient (IN) ==
[2023-07-18 03:58] LABS: POC Calcium, Ionized 1.11 (1.16-1.32); POC Creatinine 0.8 (0.6-1.2); POC Potassium 4.2 (3.3-5.1)
[2023-07-18] MEDS: 0.9 % SODIUM CHLORIDE 1,000 ML IV ONE ×2 (04:01→04:31)
[2023-07-18] MEDS ORDERED: 0.9 % SODIUM CHLORIDE 1,640 ML IV ONE (04:26)
[2023-07-18] MEDS ORDERED: DOXYCYCLINE 100 MG in DEXTROSE 5% IN WATER 100 ML IV ONE (04:28)
[2023-07-18] MEDS ORDERED: cefTRIAXone 2 GM in DEXTROSE 5% IN WATER 50 ML IV ONE (04:28)
[2023-07-18] MEDS ORDERED: DEXTROSE 5% IN WATER 0 ML IV ONE (05:07)
[2023-07-18 05:17] LABS: Basophils # (Auto) 0.04 K/mcL (0.00-0.30); Basophils % (Auto) 0.3 % (0.0-2.0); Eosinophils # (Auto) 0.03 K/mcL (0.00-0.70); Eosinophils % (Auto) 0.2 % (0.0-7.0); Hematocrit 43.9 % (34.1-44.9); Hemoglobin 13.3 g/dL (11.2-15.7); Lymphocytes # (Auto) 1.02 K/mcL (1.50-4.80); Lymphocytes % (Auto) 6.7 % (15.5-49.0); Mean Cell Volume 94.2 fL (80.0-100.0); Mean Corpuscular HGB Conc 30.3 g/dL (31.0-36.0); Mean Platelet Volume 8.8 fL (8.8-12.5); Monocytes # (Auto) 0.92 K/mcL (0.10-0.90); Monocytes % (Auto) 6.1 % (1.0-12.0); Neutrophils % (Auto) 86.4 % (38.0-78.0); Platelet Count 315 K/mcL (140-440); RBC 4.66 M/mcL (3.59-5.38); Red Cell Distribution Width 15.2 % (11.5-14.5); WBC 15.2 K/mcL (4.5-11.0)
[2023-07-18 05:20] LABS: Alcohol, Blood < 10.0 mg/dL; Alcohol,Blood < 0.010 gm/dL (<0.010)
[2023-07-18 05:24] LABS: ALT/SGPT 12 U/L (<40); AST/SGOT 14 U/L (<32); Albumin 3.7 gm/dL (3.2-5.2); Albumin/Globulin Ratio 1.1 (1.0-2.3); Alkaline Phosphatase 50 U/L (39-117); Bilirubin,Total 0.2 mg/dL (0.1-1.0); Blood Urea Nitrogen 12 mg/dL (8-23); Carbon Dioxide 26 mmol/L (22-30); Chloride 98 mmol/L (96-108); Globulin 3.3 gm/dL (2.2-3.7); Glomerular Filtration Rate 60; Glucose 108 mg/dL (70-105)
[2023-07-18] MEDS ORDERED: ALBUTEROL SULFATE 2.5 MG/3 ML NEBULIZER NEB PRN (07:05)
[2023-07-18] MEDS ORDERED: 0.9 % SODIUM CHLORIDE 1,000 ML IV SCH (07:05)
[2023-07-18] MEDS ORDERED: SENNOSIDES 1 TABLET PO PRN (07:05)
[2023-07-18] MEDS ORDERED: HYDROcodone/APAP 5/325MG TABLET PO PRN (07:05)
[2023-07-18] MEDS ORDERED: LACTULOSE 20 GM/30 ML ORAL.SOL PO PRN (07:05)
[2023-07-18 07:47] LABS: ABG Methemoglobin 0.2 % (0.4-1.5); Total Hemoglobin 12.8 gm/Dl (12.0-15.0); VBG Base Excess -2 (-2-3); VBG Oxygen Saturation 85.1 % (40.0-70.0); VBG PCO2 51.6 mmHg (41.0-51.0); VBG PO2 57.7 mmHg (25.0-40.0); VBG Total CO2 26.6 mmol/L (25.0-29.0)
[2023-07-18 08:06] LABS: ALT/SGPT 10 U/L (<40); AST/SGOT 12 U/L (<32); Albumin 3.1 gm/dL (3.2-5.2); Albumin/Globulin Ratio 1.1 (1.0-2.3); Alkaline Phosphatase 40 U/L (39-117); Bilirubin,Direct < 0.2 mg/dL (0-0.3); Bilirubin,Total < 0.2 mg/dL (0.1-1.0); Blood Urea Nitrogen 10 mg/dL (8-23); Calcium 7.9 mg/dL (8.6-10.4); Carbon Dioxide 27 mmol/L (22-30); Chloride 102 mmol/L (96-108); Globulin 2.8 gm/dL (2.2-3.7); Glomerular Filtration Rate 69; Glucose 119 mg/dL (70-105); Lactate Dehydrogenase 133 U/L (135-225); Phosphorous 2.2 mg/dL (2.5-4.5); Triglycerides 69 mg/dL (<150); Uric Acid 5.2 mg/dL (2.5-8.0)
[2023-07-18] MEDS: ENOXAPARIN 40 MG/0.4 ML SYRINGE SQ SCH (08:28)
[2023-07-18] MEDS: DOCUSATE SODIUM 100 MG CAPSULE PO SCH ×2 (08:28→20:19)
[2023-07-18] MEDS: CEFEPIME 2 GM VIAL IV SCH (11:49)
[2023-07-18] MEDS: ACETAMINOPHEN 325 MG TABLET PO PRN (13:03)
[2023-07-18] MEDS: 0.9 % SODIUM CHLORIDE 10 ML SYRINGE IV SCH ×2 (13:07→20:20)
[2023-07-18] MEDS ORDERED: LORazepam 1 MG TABLET PO PRN (16:14)
[2023-07-18] MEDS: HYDROcodone/APAP 10/325MG TABLET PO PRN (19:51)
[2023-07-18] MEDS: GABAPENTIN 300 MG CAPSULE PO SCH (20:19)
[2023-07-18] MEDS: DOXYCYCLINE 100 MG in DEXTROSE 5% IN WATER 100 ML IV SCH (20:20)
[2023-07-19] MEDS: 0.9 % SODIUM CHLORIDE 10 ML SYRINGE IV SCH ×4 (00:20→20:24)
[2023-07-19] MEDS: CEFEPIME 2 GM VIAL IV SCH ×4 (00:20→22:41)
[2023-07-19] MEDS: HYDROcodone/APAP 10/325MG TABLET PO PRN ×4 (02:56→20:30)
[2023-07-19 06:54] LABS: ALT/SGPT 7 U/L (<40); AST/SGOT 10 U/L (<32); Albumin 2.7 gm/dL (3.2-5.2); Alkaline Phosphatase 38 U/L (39-117); Bilirubin,Direct < 0.2 mg/dL (0-0.3); Bilirubin,Total < 0.2 mg/dL (0.1-1.0); Blood Urea Nitrogen 8 mg/dL (8-23); Carbon Dioxide 27 mmol/L (22-30); Chloride 104 mmol/L (96-108); Globulin 2.8 gm/dL (2.2-3.7); Glomerular Filtration Rate 81; Glucose 107 mg/dL (70-105); Lactate Dehydrogenase 114 U/L (135-225); Phosphorous 2.1 mg/dL (2.5-4.5); Triglycerides 57 mg/dL (<150); Uric Acid 4.4 mg/dL (2.5-8.0)
[2023-07-19 07:07] LABS: Basophils # (Auto) 0.04 K/mcL (0.00-0.30); Basophils % (Auto) 0.3 % (0.0-2.0); Eosinophils # (Auto) 0.18 K/mcL (0.00-0.70); Eosinophils % (Auto) 1.6 % (0.0-7.0); Hematocrit 32.9 % (34.1-44.9); Hemoglobin 10.1 g/dL (11.2-15.7); Mean Cell Volume 92.9 fL (80.0-100.0); Mean Corpuscular HGB Conc 30.7 g/dL (31.0-36.0); Mean Platelet Volume 8.8 fL (8.8-12.5); Monocytes # (Auto) 0.58 K/mcL (0.10-0.90); Neutrophils % (Auto) 73.4 % (38.0-78.0); Platelet Count 268 K/mcL (140-440); RBC 3.54 M/mcL (3.59-5.38); Red Cell Distribution Width 15.4 % (11.5-14.5); WBC 11.6 K/mcL (4.5-11.0)
[2023-07-19] MEDS: ACETAMINOPHEN 325 MG TABLET PO PRN (07:40)
[2023-07-19] MEDS: OMEPRAZOLE 20 MG CAPSULE PO SCH (07:42)
[2023-07-19] MEDS ORDERED: LORazepam 1 MG TABLET PO PRN (08:39)
[2023-07-19] MEDS: DOCUSATE SODIUM 100 MG CAPSULE PO SCH ×2 (09:07→20:24)
[2023-07-19] MEDS: ENOXAPARIN 40 MG/0.4 ML SYRINGE SQ SCH (09:08)
[2023-07-19] MEDS: DOXYCYCLINE 100 MG in DEXTROSE 5% IN WATER 100 ML IV SCH ×2 (09:08→20:25)
[2023-07-19] MEDS: GABAPENTIN 300 MG CAPSULE PO SCH (20:29)
[2023-07-20] MEDS: CEFEPIME 2 GM VIAL IV SCH (06:40)
[2023-07-20] MEDS: 0.9 % SODIUM CHLORIDE 10 ML SYRINGE IV SCH (06:40)
[2023-07-20] MEDS: OMEPRAZOLE 20 MG CAPSULE PO SCH (06:57)
[2023-07-20] MEDS: HYDROcodone/APAP 10/325MG TABLET PO PRN (06:57)
[2023-07-20 07:02] LABS: Basophils # (Auto) 0.02 K/mcL (0.00-0.30); Basophils % (Auto) 0.2 % (0.0-2.0); Eosinophils # (Auto) 0.16 K/mcL (0.00-0.70); Eosinophils % (Auto) 1.7 % (0.0-7.0); Hemoglobin 12.5 g/dL (11.2-15.7); Lymphocytes # (Auto) 1.68 K/mcL (1.50-4.80); Lymphocytes % (Auto) 17.5 % (15.5-49.0); Mean Cell Volume 89.7 fL (80.0-100.0); Mean Corpuscular HGB Conc 31.3 g/dL (31.0-36.0); Mean Platelet Volume 8.8 fL (8.8-12.5); Monocytes % (Auto) 8.3 % (1.0-12.0); Neutrophils % (Auto) 71.8 % (38.0-78.0); Platelet Count 320 K/mcL (140-440); RBC 4.46 M/mcL (3.59-5.38); WBC 9.6 K/mcL (4.5-11.0)
[2023-07-20 07:32] LABS: ALT/SGPT 8 U/L (<40); AST/SGOT 12 U/L (<32); Albumin 3.4 gm/dL (3.2-5.2); Albumin/Globulin Ratio 0.9 (1.0-2.3); Alkaline Phosphatase 52 U/L (39-117); Bilirubin,Direct < 0.2 mg/dL (0-0.3); Bilirubin,Total 0.2 mg/dL (0.1-1.0); Blood Urea Nitrogen 7 mg/dL (8-23); Calcium 9.1 mg/dL (8.6-10.4); Carbon Dioxide 27 mmol/L (22-30); Chloride 99 mmol/L (96-108); Globulin 3.8 gm/dL (2.2-3.7); Glomerular Filtration Rate 85; Glucose 97 mg/dL (70-105); Lactate Dehydrogenase 171 U/L (135-225); Phosphorous 2.3 mg/dL (2.5-4.5); Triglycerides 95 mg/dL (<150); Uric Acid 3.4 mg/dL (2.5-8.0)
[2023-07-20] MEDS: DOCUSATE SODIUM 100 MG CAPSULE PO SCH (08:46)
[2023-07-20] MEDS: ENOXAPARIN 40 MG/0.4 ML SYRINGE SQ SCH (08:46)
[2023-07-20] MEDS ORDERED: amLODIPine 5 MG TABLET PO SCH (09:00)
[2023-07-20] MEDS ORDERED: NORTRIPTYLINE 25 MG CAPSULE PO SCH (21:00)
== END 2023-07-20 09:40 | disposition home or self-care (01) | DRG 871 ==
LOC: ED 03:20 → ICU 06:44
PROVIDERS: ADMIT Internal Medicine; ATTEND Internal Medicine

== ENCOUNTER 2025-09-09 05:21 | Inpatient (IN) ==
[2025-09-09] MEDS: 0.9 % SODIUM CHLORIDE 1,000 ML IV SCH ×2 (06:00→06:55)
[2025-09-09 06:17] LABS: Basophils # (Auto) 0.01 K/mcL (0.00-0.30); Basophils % (Auto) 0.1 % (0.0-2.0); Eosinophils # (Auto) 0.02 K/mcL (0.00-0.70); Eosinophils % (Auto) 0.2 % (0.0-7.0); Hematocrit 33.2 % (34.1-44.9); Hemoglobin 10.1 g/dL (11.2-15.7); Lymphocytes # (Auto) 1.37 K/mcL (1.50-4.80); Lymphocytes % (Auto) 11.9 % (15.5-49.0); Mean Corpuscular HGB Conc 30.4 g/dL (31.0-36.0); Monocytes # (Auto) 1.03 K/mcL (0.10-0.90); Monocytes % (Auto) 9.0 % (1.0-12.0); Neutrophils % (Auto) 78.5 % (38.0-78.0); Platelet Count 269 K/mcL (140-440); RBC 3.86 M/mcL (3.59-5.38); WBC 11.5 K/mcL (4.5-11.0)
[2025-09-09 06:35] LABS: VBG HCO3 33.0 mmol/L (24.0-28.0); VBG PCO2 49.3 mmHg (41.0-51.0); VBG PH 7.44 U (7.32-7.42); VBG PO2 64.0 mmHg (25.0-40.0)
[2025-09-09] MEDS: cefTRIAXone 1 GM VIAL IV ONE (06:35)
[2025-09-09 06:44] LABS: ALT/SGPT 8 U/L (<40); AST/SGOT 14 U/L (<32); Albumin 3.4 gm/dL (3.2-5.2); Albumin/Globulin Ratio 1.4 (1.0-2.3); Alkaline Phosphatase 44 U/L (39-117); Anion Gap 7.0 (8.0-16.0); Bilirubin,Total < 0.2 mg/dL (0.1-1.0); Blood Urea Nitrogen 9 mg/dL (8-23); Calcium 8.2 mg/dL (8.6-10.4); Carbon Dioxide 30 mmol/L (22-30); Chloride 97 mmol/L (96-108); Globulin 2.5 gm/dL (2.2-3.7); Glucose 103 mg/dL (70-105); Potassium 3.9 mmol/L (3.3-5.1); Sodium 134 mmol/L (133-145); Thyroid Stimulating Hormone 0.55 uIU/mL (0.27-5.01)
[2025-09-09] MEDS: AZITHROMYCIN 500 MG in DEXTROSE 5% IN WATER 250 ML IV ONE (06:47)
[2025-09-09 06:48] LABS: Bacteria,Urine Many /hpf (0); Bilirubin,Urine NEGATIVE (Negative); Color,Urine LT. YELLOW; Glucose,Urine (UA) NEGATIVE (Negative); Ketones,Urine NEGATIVE (Negative); Leukocyte Esterase,Urine NEGATIVE /uL (Negative); Mucus,Urine Few /hpf; PH,Urine 7.5 (5.0-9.0); Protein,Urine NEGATIVE (Negative); Specific Gravity,Urine 1.015 (1.000-1.035); Urobilinogen,Urine 0.2 mg/dL
[2025-09-09] MEDS ORDERED: SENNOSIDES 1 TABLET PO PRN (12:35)
[2025-09-09] MEDS ORDERED: ONDANSETRON 4 MG/2 ML VIAL IV PRN (12:35)
[2025-09-09] MEDS ORDERED: POLYETHYLENE GLYCOL 3350 17 GM PACKET PO PRN (12:35)
[2025-09-09] MEDS: LACTATED RINGERS 1,000 ML IV SCH (12:52)
[2025-09-09] MEDS: LORazepam 2 MG/ML VIAL IV SCH (13:17)
[2025-09-09] MEDS: 0.9 % SODIUM CHLORIDE 10 ML SYRINGE IV SCH (13:21)
[2025-09-09] MEDS: HYDROcodone/APAP 10/325MG TABLET PO PRN (14:36)
[2025-09-09] MEDS: IPRATROPIUM/ALBUTEROL 3 ML AMPUL.NEB NEB SCH ×2 (18:00→19:07)
[2025-09-09] MEDS: DOXYCYCLINE 100 MG in DEXTROSE 5% IN WATER 100 ML IV SCH (20:37)
[2025-09-09] MEDS: NORTRIPTYLINE 25 MG CAPSULE PO SCH (20:42)
[2025-09-09] MEDS: GABAPENTIN 400 MG CAPSULE PO SCH (20:42)
[2025-09-09] MEDS: HEPARIN 5,000 UNIT/ML VIAL SQ SCH (20:43)
[2025-09-10] MEDS: OMEPRAZOLE 20 MG CAPSULE PO SCH (07:27)
[2025-09-10 08:15] LABS: ALT/SGPT 8 U/L (<40); AST/SGOT 14 U/L (<32); Albumin 3.3 gm/dL (3.2-5.2); Albumin/Globulin Ratio 1.3 (1.0-2.3); Alkaline Phosphatase 39 U/L (39-117); Anion Gap 7.0 (8.0-16.0); Bilirubin,Direct < 0.2 mg/dL (0-0.3); Bilirubin,Total < 0.2 mg/dL (0.1-1.0); Blood Urea Nitrogen 5 mg/dL (8-23); Calcium 8.3 mg/dL (8.6-10.4); Carbon Dioxide 29 mmol/L (22-30); Chloride 103 mmol/L (96-108); Globulin 2.6 gm/dL (2.2-3.7); Glucose 88 mg/dL (70-105); Phosphorous 2.6 mg/dL (2.5-4.5); Potassium 3.6 mmol/L (3.3-5.1); Sodium 139 mmol/L (133-145); Triglycerides 78 mg/dL (<150); Uric Acid 3.5 mg/dL (2.5-8.0)
[2025-09-10 08:22] LABS: Basophils # (Auto) 0.02 K/mcL (0.00-0.30); Basophils % (Auto) 0.3 % (0.0-2.0); Eosinophils # (Auto) 0.06 K/mcL (0.00-0.70); Eosinophils % (Auto) 1.0 % (0.0-7.0); Hematocrit 32.0 % (34.1-44.9); Hemoglobin 9.5 g/dL (11.2-15.7); Lymphocytes # (Auto) 2.03 K/mcL (1.50-4.80); Lymphocytes % (Auto) 33.4 % (15.5-49.0); Mean Corpuscular HGB Conc 29.7 g/dL (31.0-36.0); Monocytes # (Auto) 0.67 K/mcL (0.10-0.90); Monocytes % (Auto) 11.0 % (1.0-12.0); Neutrophils % (Auto) 54.1 % (38.0-78.0); Platelet Count 269 K/mcL (140-440); RBC 3.62 M/mcL (3.59-5.38); WBC 6.1 K/mcL (4.5-11.0)
[2025-09-10] MEDS ORDERED: cefTRIAXone 1 GM VIAL IV SCH (09:00)
[2025-09-10] MEDS: ESTRADIOL 1 MG TABLET PO SCH (09:44)
[2025-09-10] MEDS: cefTRIAXone 2 GM in DEXTROSE 5% IN WATER 50 ML IV SCH (10:47)
[2025-09-10] MEDS: ACETAMINOPHEN 325 MG TABLET PO PRN (11:14)
[2025-09-10] MEDS: DIAZEPAM 10 MG/2 ML SYRINGE IV PRN (15:31)
[2025-09-11 07:06] LABS: ALT/SGPT 9 U/L (<40); AST/SGOT 14 U/L (<32); Albumin 3.5 gm/dL (3.2-5.2); Albumin/Globulin Ratio 1.2 (1.0-2.3); Alkaline Phosphatase 42 U/L (39-117); Anion Gap 9.0 (8.0-16.0); Bilirubin,Direct < 0.2 mg/dL (0-0.3); Bilirubin,Total < 0.2 mg/dL (0.1-1.0); Blood Urea Nitrogen 8 mg/dL (8-23); Calcium 8.6 mg/dL (8.6-10.4); Carbon Dioxide 28 mmol/L (22-30); Chloride 101 mmol/L (96-108); Globulin 2.9 gm/dL (2.2-3.7); Glucose 91 mg/dL (70-105); Phosphorous 3.3 mg/dL (2.5-4.5); Potassium 3.4 mmol/L (3.3-5.1); Sodium 138 mmol/L (133-145); Triglycerides 121 mg/dL (<150); Uric Acid 3.7 mg/dL (2.5-8.0)
[2025-09-11 07:33] LABS: Basophils # (Auto) 0.02 K/mcL (0.00-0.30); Basophils % (Auto) 0.3 % (0.0-2.0); Eosinophils # (Auto) 0.11 K/mcL (0.00-0.70); Eosinophils % (Auto) 1.6 % (0.0-7.0); Hematocrit 34.0 % (34.1-44.9); Hemoglobin 10.3 g/dL (11.2-15.7); Lymphocytes # (Auto) 2.37 K/mcL (1.50-4.80); Lymphocytes % (Auto) 34.9 % (15.5-49.0); Mean Corpuscular HGB Conc 30.3 g/dL (31.0-36.0); Monocytes # (Auto) 0.67 K/mcL (0.10-0.90); Monocytes % (Auto) 9.9 % (1.0-12.0); Neutrophils % (Auto) 53.0 % (38.0-78.0); Platelet Count 304 K/mcL (140-440); RBC 3.92 M/mcL (3.59-5.38); WBC 6.8 K/mcL (4.5-11.0)
[2025-09-11] MEDS ORDERED: IPRATROPIUM/ALBUTEROL 3 ML AMPUL.NEB NEB PRN (10:40)
[2025-09-11] MEDS ORDERED: BENZONATATE 100 MG CAPSULE PO PRN (12:10)
[2025-09-11] MEDS: SODIUM CHLORIDE NASAL 1 SPRAY BOTTLE NAS PRN (15:00)
[2025-09-12 06:31] LABS: ALT/SGPT 10 U/L (<40); AST/SGOT 14 U/L (<32); Albumin 3.6 gm/dL (3.2-5.2); Albumin/Globulin Ratio 1.2 (1.0-2.3); Alkaline Phosphatase 45 U/L (39-117); Anion Gap 7.0 (8.0-16.0); Bilirubin,Direct < 0.2 mg/dL (0-0.3); Bilirubin,Total < 0.2 mg/dL (0.1-1.0); Blood Urea Nitrogen 11 mg/dL (8-23); C-Reactive Protein 4.29 mg/dL (0.03-0.80); Calcium 9.2 mg/dL (8.6-10.4); Carbon Dioxide 29 mmol/L (22-30); Chloride 100 mmol/L (96-108); Globulin 3.0 gm/dL (2.2-3.7); Glucose 89 mg/dL (70-105); Phosphorous 3.1 mg/dL (2.5-4.5); Potassium 3.8 mmol/L (3.3-5.1); Sodium 136 mmol/L (133-145); Triglycerides 151 mg/dL (<150); Uric Acid 4.1 mg/dL (2.5-8.0)
[2025-09-12 12:52] VITALS: TEMP 97.3; O2SAT 96
== END 2025-09-12 12:45 | disposition home or self-care (01) | DRG 871 ==
LOC: ED 05:21 → ICU 12:26
PROVIDERS: ADMIT Student in an Organized Health Care Education/Training Program; ATTEND Internal Medicine